=== PATIENT | female | born 1980 | race Caucasian/White ===

== ENCOUNTER 2021-06-17 00:02 | Day surgery (SDC) | payer OTHER, SELFPAY ==
[2021-06-10 13:34] VITALS: BMI 26.4
--- NOTE | 2021-06-10 13:45 | PC.NURSE ---
Report to the Outpatient Waiting Room, entrance under the green pavilion located off [facility], at time 0600 on date 06/17/21. OR Time: 0730. - You will be asked a series of questions to screen for COVID 19 for your protection. - A mask is required within the hospital. - No visitors are allowed at this time. Preoperative COVID Testing Requirements: No COVID Test needed if: (proof is required; if not received patient will have Rapid Test prior to entry) - Patient has received COVID Vaccine at least 14 days prior to procedure date or - Patient has positive COVID test result within last 90 days of surgery date. COVID Test needed if above criteria is not met Patients may have clear liquids (water, carbonated beverages, clear teas, apple juice) until 3 hours prior to surgery with a maximum of 20 ounces. - No food from midnight until time of surgery Take the following medications with a SIP of water the morning of surgery: ANXIETY MED IF NEEDED Medications to discontinue per physician: N/A Date to take last dose: N/A Please no make-up, nail azeri, hairspray, perfume, deodorant, or body powder the day of surgery. No jewelry (including any body piercings) or valuables the day of surgery, leave them at home. Please take a shower or bath the night before, or the morning of, surgery with an antibacterial soap. Wear comfortable, loose fitting clothing. - Jewelry must be removed prior to entering the operating room. Rings and piercings that are not removed may be cut off. - The hospital will not accept responsibility for valuables. - Please leave all valuables, including medications, at home the day of surgery. If you are going home after surgery, a licensed electric pile driver operator must drive you home. - NO public transportation without another adult. - We recommend that an adult stay with you for 24 hours following discharge. - We also recommend that you do not drive, make important decision, drink alcoholic beverages, or take any drugs that were not prescribed by your health care provider for at least 24 hours after your discharge time. Follow any additional instructions given to you from your surgeon. Telephone instructions given to MONROE UMANA and asked if any additional questions and then verbalized understanding. Patient advised to call surgeon office or pre surgery nurse liaison [phone] if any additional questions.
[2021-06-17] VITALS (11 sets, daily range): BP systolic 94–121; BP diastolic 55–72; PULSE 60–78; RESP 10–18; TEMP 36.3–37.2; O2SAT 96–100
--- NOTE | 2021-06-17 05:51 | ECG_ITS ---
Measurements Intervals [place] Rate: 48 P: 63 [place]: 140 QRS: 30 QRSD: 97 T: 51 QT: 415 QTc: 373 Interpretive Statements SINUS BRADYCARDIA INCOMPLETE RIGHT BUNDLE BRANCH BLOCK BASELINE ARTIFACT- I, II, III, AVR, AVL, AVF, V1-V2 ABNORMAL ECG Electronically Signed On 06-17-2021 7:41:20 CREDIT RISK REVIEW OFFICER by David Lezama D.O.
[2021-06-17] MEDS: LACTATED RINGERS 1,000 ML 30 ML IV CONT ×2 (06:45→13:04)
[2021-06-17 06:48] LABS: Urine Cotinine NEGATIVE
--- NOTE | 2021-06-17 06:48 | P.PNAN_ITS ---
Anes - Initial Pre Proc Eval Procedure: Operation Date: 06/17/21 07:30 Proposed Procedures p Bilateral Breast Augmentation with Mastopexy and Galaflex - Timothy Mccormick MD s Abdominoplasty - Timothy Mccormick MD Date/Time: 06/17/21 06:48 Surgeon: Timothy Mccormick MD Pre Op Diagnosis: skin laxity, breast ptosis, micromastia Patient Data Age: 40 Gender: F Height: 1.6 m Weight: 67.59 kg Allergies Allergy/AdvReac Type Severity Reaction Status Date / Time Sulfa (Sulfonamide AdvReac Unknown hives Verified 06/17/21 06:49 Antibiotics) Home Medications Medication Instructions Recorded Confirmed Type docusate sodium 100 mg capsule 100 mg PO DAILY #14 cap 06/03/21 06/10/21 Rx ondansetron 4 mg disintegrating 4 mg PO Q8H #21 tablet 06/03/21 06/10/21 Rx tablet carisoprodol 350 mg tablet 350 mg PO TID PRN #21 tablet 06/04/21 06/10/21 Rx diazepam 5 mg tablet 5 mg PO TID PRN #7 tablet 06/04/21 06/10/21 Rx oxycodone-acetaminophen 5 mg-325 1 tablet PO Q6H PRN #30 tablet 06/04/21 06/10/21 Rx mg tablet Laboratory Tests 06/17/21 06:19 Cotinine Pending Patient hx anesthesia problems: none Family hx anesthesia problems: none Results Review: All pre-operative results and documents have been reviewed as part of the pre-operative evaluation. [facility] Past Medical History Medical History (Updated 06/17/21 @ 06:48 by Jv Ho MD) Bradycardia Surgical History Surgical History (Updated 06/17/21 @ 06:48 by Jv Ho MD) History of section S/P gastric sleeve procedure Family History Family History Father Hypertension Mother Hypertension Social History Social History Smoking status: Never smoker Alcohol intake: current Drinks per week: 3 Substance use: never Substance use type: does not use Living arrangements: with family Spiritual care concerns: No Anes - Eval Final PreProcedure Day of Procedure 02/08/22 06:48 Patient weight: overweight Heart: regular rate and rhythm Lungs: clear to auscultation Airway: Mallampati scale class 1 Neurological: alert and oriented Last oral intake: >/= 8 hours ASA classification: II Emergent: no Anesthetic plan: proceed Anesthesia type and monitoring: general ETT and standard monitoring Results Review: All pre-operative results and documents have been reviewed as part of the pre-operative evaluation. Informed Consent: The patient's anesthetic plan and its attendant risks and benefits were discussed with the patient/family/POA. Questions were solicited and answers provided to the satisfaction of the patient/family/POA.
--- NOTE | 2021-06-17 06:54 | WPDHPUPDATE1 ---
History and Physical Update Update Date/Time: 06/17/21 06:54 History and Physical has been reviewed, including an updated exam of the patient. There are NO changes in the patient's condition. Risks, benefits, and alternatives have been discussed and questions answered. Patient agrees to proceed with procedure.
--- NOTE | 2021-06-17 07:18 | W.PM.PROC2 ---
Procedure Note - Detailed Date of Procedure 06/17/21 Pre-op Diagnosis skin laxity, breast ptosis, micromastia Post-op Diagnosis same Procedure Performed 1. Bilateral augmentation mastopexy with galaflex 2. Progressive tension abdominoplasty Surgeon Timothy Mccormick MD Anesthesia general Findings Bilateral Dual plane 1 augmentation mastopexy Bilateral Natrelle saline breast implants 390cc filled to 410cc Right - REF# 68-390 SN [id number] Left - REF# 68-390 SN [id number] Galaflex REF# [id number] Tissue removed: 1394 grams Description of Procedure Previously and again today the risks, benefits, alternatives were discussed in extensive detail. I wanted her to be very realistic about the risks involved as well as expectations. We discussed aftercare and what to monitor for. Made sure answered all of her questions to her satisfaction today and consent was obtained. Marked in the preoperative holding area with their verification. The patient was taken to the operating room placed supine on the operating table. Anesthesia was provided by anesthesiology. A surgical time-out was taken. We cleansed the skin and 1% lidocaine and 0.25% Marcaine with epinephrine was used anesthetize as a field block. She was prepped and draped in a standard sterile fashion. Breast Tegaderm nipple Brown were placed. A 15 blade used to make an incision just superior to the inframammary fold leaving a cusp of de-epithelized tissue at the t junction. Dissection was continued until the chest wall as identified. I incised the pectoralis major along its inferior border and completely released the inferior border leaving the medial border intact. I created a subpectoral pocket in the appropriate dimensions based on our preoperative planning for the implant. I then copiously irrigated with saline solution and verified a strict hemostasis. Next the use a triple antibiotic and Betadine containing solution to irrigate the pocket. I washed my gloves with the triple antibiotic and Betadine solution. I prepped the implants on the back table and introduced into the pocket. Filled using a fill kit to the volume above. Verified valve was seated. Having verified positioning of the implant this was closed using 2-0 Vicryl. I tailor tacked the breast into position. Placed her in a sitting position. Verified the nipple-areolar location based on preoperative planning as well as intraoperative observations and measurements in full agreement. She was placed supine. I de-epithelialized the pedicle. I then removed the inferior central portion of the breast need making sure the implant was well protected. I elevated medial and lateral tissue flaps as well for planned closure. Galaflex was trimmed and sutured into place using 2-0 Vicryl. I closed along the IMF with 2-0 Stratafix. Along the vertical with 2-0 PDS. I closed around the Hussein with 3-0 strata fix. 3-0 Monocryl along the vertical. 3-0 Stratafix along the IMF. I finally closed everything with running subcuticular 4-0 Monocryl and tissue glue. Abdomen Stab incisions were made and tumessed with a tumescent solution. A 10 blade was used to make the upper incision. I continued dissection down to the level of fascia. Elevated just what was necessary for repair of the diastasis. I then again flexed the bed to verify the upper skin flap would reach the lower markings without tension. Once verified I placed her supine once again and a 10 blade used to make the lower incision. I elevated up to level the umbilicus and left the umbilicus intact on a well-vascularized stalk. The intervening tissue was removed. A 2 mm blunt cannula with 0.5% bupivicaine was injected deep to the fascia bilaterally. I plicated the diastasis recti using 0 PDO stratafix barbed suture. This was in 2 separate layers using 2 separate sutures as well. I repaired around the umbilicus leaving plenty of room for well-vascularized stalk o
[2021-06-17] MEDS: ceFAZolin 2 GM/D5W 50 ML 2 GM/50 ML BAG IVPB (07:30)
[2021-06-17] MEDS: TRANEXAMIC ACID 1,000MG/ISO100 1,000 MG/100 ML BAG 200 MG IVPB (07:42)
[2021-06-17] MEDS: BUPIVACAINE HCL 0.25% PF 30 ML VIAL INFILTRATE (07:51)
[2021-06-17] MEDS: LIDO 1%/EPINEPHRINE/PF 1:200,000 30 ML VIAL INFILTRATE (07:51)
[2021-06-17] MEDS: LACTATED RINGERS IRRIG 1,000 ML, LIDOCAINE HCL 1% LOCAL INJ 50 ML, EPINEPHrine HCL INJ ... INFILTRATE (10:30)
[2021-06-17] MEDS: BUPIVACAINE/EPINEPHRINE 0.5% 30 ML VIAL INFILTRATE ×2 (11:29)
[2021-06-17] MEDS: ceFAZolin SODIUM 1 GM VIAL IV PUSH (11:30)
[2021-06-17] MEDS: fentaNYL CITRATE INJ (*CRX) 100 MCG/2 ML VIAL 25 MCG IV PUSH ×7 (13:25→14:31)
[2021-06-17] MEDS: LACTATED RINGERS 1,000 ML 125 ML IV CONT ×2 (15:32→22:42)
[2021-06-17] MEDS: MORPHINE SULFATE (*CRX) 2 MG/ML INJ IV PUSH ×2 (15:33→22:41)
[2021-06-17] MEDS: oxyCODONE/ACETAMINOPHEN (*CRX) 5-325 MG TABLET PO (18:57)
[2021-06-17] MEDS: DOCUSATE SODIUM 100 MG CAPSULE PO (18:57)
[2021-06-17] MEDS: carisoprodoL (*CRX) 350 MG TABLET PO (18:58)
[2021-06-17] MEDS: ENOXAPARIN 40 MG/0.4 ML SYRINGE SUB-Q (18:59)
[2021-06-18] MEDS: carisoprodoL (*CRX) 350 MG TABLET PO ×3 (01:18→13:05)
[2021-06-18 01:20] VITALS: BP 79/46; PULSE 65; RESP 18; TEMP 37.1
[2021-06-18] MEDS: oxyCODONE/ACETAMINOPHEN (*CRX) 5-325 MG TABLET PO ×3 (01:22→13:05)
[2021-06-18 05:15] VITALS: BP 79/43; PULSE 75; RESP 16; TEMP 37.2
[2021-06-18] MEDS: MORPHINE SULFATE (*CRX) 2 MG/ML INJ IV PUSH ×2 (05:50→10:56)
--- NOTE | 2021-06-18 06:33 | WPDPN ---
Progress Note: A&P Assessment and Plan (1) Micromastia: Code(s): N64.82 - Hypoplasia of breast Status: Acute Assessment and Plan: Overall doing well after bilateral augmentation mastopexy with progressive tension abdominoplasty. Will discharge home later today when: Tolerating p.o. Ambulating Pain controlled. I will see her back. Today we had a lengthy discussion about the care. Activity limitations. What monitor for. This was a lengthy open-ended conversation making sure answered questions are satisfaction. I will see her back. Call with any questions or concerns at any time. we also discussed what is a medical emergency and went to proceed to the ER/dial 911 (2) Skin laxity: Code(s): L57.4 - Cutis laxa senilis Status: Acute Time Spent With Patient Time with patient: 25 - 35 minutes Subjective Date/time seen: 06/18/21 06:15 Overnight she had a little difficulty with getting up. She would get a little bit lightheaded. Otherwise she is feeling well. No fevers or chills. No nausea vomiting. No shortness of breath. No chest pain. She does have decent pain control. Review of Systems Review of Systems: All systems reviewed & are unremarkable except as noted in HPI and below Exam Narrative: Alert and oriented no obvious distress. Respiratory unlabored. Bilateral breasts are soft. No signs of infection. No hematoma. No seroma. Good color and capillary refill. Abdomen soft. No signs of infection. No hematoma. No seroma. Good color and capillary refill No calf tenderness. Negative Homans Objective Data Vital Signs Vital Signs: Vital Signs - 24 hr 06/17/21 13:10 06/17/21 13:25 06/17/21 13:40 Temperature 36.3 C L Pulse Rate 75 78 67 Respiratory Rate 12 16 13 Blood Pressure 109/66 108/70 Pulse Oximetry 100 100 100 06/17/21 13:55 06/17/21 14:10 06/17/21 14:25 Temperature Pulse Rate 69 66 64 Respiratory Rate 16 15 10 L Blood Pressure 117/64 111/72 110/65 Pulse Oximetry 100 98 96 06/17/21 14:40 06/17/21 14:55 06/17/21 15:15 Temperature 36.7 C Pulse Rate 60 73 64 Respiratory Rate 16 18 16 Blood Pressure 103/67 108/67 121/71 Pulse Oximetry 97 100 100 06/17/21 19:11 06/18/21 01:20 06/18/21 05:15 Temperature 36.8 C 37.1 C 37.2 C Pulse Rate 75 65 75 Respiratory Rate 16 18 16 Blood Pressure 109/55 L 79/46 L 79/43 L Pulse Oximetry Intake/Output Intake/Output: Intake & Output 06/15/21 06/16/21 06/17/21 06/18/21 23:59 23:59 23:59 23:59 Intake Total 3050 Output Total 210 1050 Balance 2840 -1050 Meds/Results Medications: Active Medications Generic Name Dose Route Start Last Admin Trade Name Freq PRN Reason Stop Dose Admin Carisoprodol 350 mg 06/17/21 18:00 06/18/21 01:18 Carisoprodol (*Crx) 350 Mg Tablet PO 350 mg Q6HR MING Administration Diazepam 5 mg 06/17/21 13:01 Diazepam (*Crx) 5 Mg Tablet PO TID PRN Anxiety Docusate Sodium 100 mg 06/17/21 21:00 06/17/21 18:57 Docusate Sodium 100 Mg Capsule PO 100 mg Q12HR MING Administration Enoxaparin Sodium 40 mg 06/17/21 19:00 06/17/21 18:59 Enoxaparin 40 Mg/0.4 Ml Syringe SUB-Q 40 mg DAILY MING Administration Lactated Ringer's 1,000 mls @ 125 mls/hr 06/17/21 13:05 06/17/21 22:42 Lr - Lactated Ringers Iv IV CONT 125 mls/hr .Q8H MING Administration Morphine Sulfate 2 mg 06/17/21 13:01 06/18/21 05:50 Morphine Sulfate (*Crx) 2 Mg/Ml Inj IV PUSH 2 mg Q2H PRN Administration Pain Ondansetron HCl 4 mg 06/17/21 13:01 Ondansetron Inj 4 Mg/2 Ml Vial IV PUSH Q6H PRN Nausea Oxycodone/Acetaminophen 1 - 2 tablet 06/17/21 13:01 06/18/21 01:22 Oxycodone/Acetaminophen (*Crx) 5-325 Mg Tablet PO 2 tablet Q6H PRN Administration Pain Labs Labs: Laboratory Results - last 24 hr 06/17/21 06:19 Cotinine Negative
--- NOTE | 2021-06-18 06:36 | PM.DS ---
DS: Admitting Diagnosis Discharge Date 06/18/2021 Admitting Diagnosis Micromastia Breats Ptosis Skin laxity DS: Discharge Diagnosis Discharge Diagnosis (1) Micromastia: Code(s): N64.82 - Hypoplasia of breast Status: Acute (2) Skin laxity: Code(s): L57.4 - Cutis laxa senilis Status: Acute (3) Breast ptosis: Code(s): N64.81 - Ptosis of breast Status: Acute DS: Summary Hospital Course Hospital Course: She underwent bilateral augmentation mastopexy with progressive tension abdominoplasty. Postoperatively has had a little lightheadedness with running out of bed however is improving. Will monitor today and plan for discharge when ambulating, pain controlled, tolerating diet. I will see her back. Time Spent with Patient Time attestation: Total time spent providing and/or coordinating discharge services: 25 minutes Exam Narrative: Alert and oriented no obvious distress. Respiratory unlabored. Bilateral breasts are soft. No signs of infection. No hematoma. No seroma. Good color and capillary refill. Abdomen soft. No signs of infection. No hematoma. No seroma. Good color and capillary refill No calf tenderness. Negative Homans DS: Data Data Completed and Pending Labs on day of discharge: Labs from last 24 hours 06/17/21 06:19 Cotinine Negative Discharge Plan Discharge Patient Disposition: Home, Self-Care Discharge Instructions: POST OPERATIVE DISCHARGE INSTRUCTIONS TIMOTHY MCCORMICK M.D. [facility] [address] [place] [address] [address] for 24 hours after anesthesia and while you are taking pain medication. Take all prescribed medication as directed Diet as tolerated. Begin gentle shoulder rolls and arm stretches 10 times per hour. No lifting or activity that raises blood pressure for 48 hours. Regular walking / ambulation. May shower. No pools or tubs for 2 weeks. Call with any questions or concerns. Slowly stand up straight as tolerated over a week. No straining or lifting more than 20 pounds for 6 weeks. If you have any questions or concerns, please call the office . If it is after hours you will be directed to the rehabilitation attendant exchange. Shortness of breath, chest pain, or other medical emergency dial 911 / proceed to the Emergency Room. Stand Alone Forms: General Discharge Instructions Follow-up/Referrals: Timothy Mccormick MD [Physician] - 1 Week Discharge Medications: Continued docusate sodium [Colace] 100 mg capsule 100 mg PO DAILY Qty: 14 RF: 0 ondansetron 4 mg tablet,disintegrating 4 mg PO Q8H Qty: 21 RF: 0 carisoprodol [Soma] 350 mg tablet 350 mg PO TID PRN (Reason: muscle pain) Qty: 21 RF: 0 diazepam [Valium] 5 mg tablet 5 mg PO TID PRN (Reason: anxiety) Qty: 7 RF: 0 oxycodone-acetaminophen [Percocet] 5-325 mg tablet 1 tablet PO Q6H PRN (Reason: pain) Qty: 30 RF: 0
[2021-06-18 07:05] VITALS: BP 83/49; PULSE 81; RESP 16; TEMP 37.4; O2SAT 99
--- NOTE | 2021-06-18 07:35 | WPDANESPN ---
Anes - Prog Note Post-Op Date/Time: 06/18/21 07:35 Cardiovascular status: normal Respiratory status: normal Airway patency: baseline Mental status: baseline Post-Op hydration status: normal Vital Signs: Last Vital Signs Temp 37.2 C 06/18/21 05:15 Pulse 75 06/18/21 05:15 Resp 16 06/18/21 05:15 BP 79/43 L 06/18/21 05:15 Pulse Ox 100 06/17/21 15:15 Pain Score (VAS): 3/10 I/O: Intake & Output 06/17/21 06/17/21 06/18/21 15:59 23:59 07:59 Intake Total 1900 1150 950 Output Total 10 200 1050 Balance 1890 950 -100 Post-procedural complaints: none Patient Feedback: Patient satisfied with anesthetic care.
[2021-06-18 10:34] VITALS: BP 77/41; PULSE 80
[2021-06-18] MEDS: LACTATED RINGERS 1,000 ML 125 ML IV CONT (10:35)
[2021-06-18] MEDS: DOCUSATE SODIUM 100 MG CAPSULE PO (10:56)
[2021-06-18] MEDS: ENOXAPARIN 40 MG/0.4 ML SYRINGE SUB-Q (10:57)
[2021-06-18] MEDS: ONDANSETRON INJ 4 MG/2 ML VIAL IV PUSH (11:00)
[2021-06-18 11:20] VITALS: BP 94/56; PULSE 83; RESP 16; TEMP 37.3; O2SAT 98
== END 2021-06-18 14:03 | disposition home or self-care (01) ==
LOC: ANHSURGERY 06:06 → ANHOB2 15:04
PROVIDERS: Visit Provider Surgery Plastic and Reconstructive Surgery
PROC: (CPT 19325; principal; 2021-06-17 07:30)
PROC: (CPT 19325; 2021-06-17 07:30)
DX: Z41.1 Encounter for cosmetic surgery (principal); N64.82 Hypoplasia of breast; L57.4 Cutis laxa senilis; N64.81 Ptosis of breast; Z79.899 Other long term (current) drug therapy; Z98.84 Bariatric surgery status
CPT/HCPCS: 19325; 19316; 80307; 93005; 99199; A9270; J0171; J0330; J0690; J1100; J1580; J1650; J2250; J2270; J2405; J3010; J7120

== ENCOUNTER 2023-02-03 15:46 | Outpatient (CLI) | payer OTHER, SELFPAY ==
--- NOTE | 2023-02-03 15:55 | ECG_ITS ---
Measurements Intervals [place] Rate: 52 P: 43 [place]: 131 QRS: 22 QRSD: 94 T: 37 QT: 418 QTc: 392 Interpretive Statements SINUS BRADYCARDIA INCOMPLETE RIGHT BUNDLE BRANCH BLOCK BORDERLINE ECG COMPARED TO ECG 06/17/2021 07:24:37 NO SIGNIFICANT CHANGES Electronically Signed On 02-03-2023 16:05:32 CDT by David Lezama D.O.
== END 2023-02-03 15:47 | disposition home or self-care (01) ==
PROVIDERS: Visit Provider Surgery Plastic and Reconstructive Surgery
DX: Z01.812 Encounter for preprocedural laboratory examination (principal); Z01.810 Encounter for preprocedural cardiovascular examination; L57.4 Cutis laxa senilis; R00.1 Bradycardia, unspecified; I45.10 Unspecified right bundle-branch block
CPT/HCPCS: 36415; 86850; 86900; 86901; 93005

== ENCOUNTER 2023-02-09 00:15 | Day surgery (SDC) | payer OTHER, SELFPAY ==
[2023-02-01 10:31] VITALS: BMI 24.7
--- NOTE | 2023-02-01 10:34 | PC.NURSE ---
Report to the Outpatient Waiting Room, entrance under the green pavilion located off [facility], at time 7:00 on date 02/09/23. Planned Procedure Time: 9:00. Time changes happen often and if your time is changed the preop area will call you the afternoon before. - You and your visitor will be asked to self-screen and do not enter if you have any COVID symptoms. - A mask is optional within the hospital at this time. Patients may have clear liquids (water, carbonated beverages, clear teas, apple juice) until 3 hours prior to surgery (6:00) with a maximum of 20 ounces. - No food from midnight until time of surgery Take the following medications with a SIP of water the morning of surgery: NONE DO NOT STOP ANY OF YOUR OTHER PRESCRIPTION MEDICATIONS PRIOR TO SURGERY ?EXCEPT THE FOLLOWING Medications to discontinue per physician: VITAMINS/SUPPLEMENTS Date to take last dose: 02/05/23 Please no make-up, nail guamanian, hairspray, perfume, deodorant, or body powder the day of surgery. No jewelry (including any body piercings) or valuables the day of surgery, leave them at home. Please take a shower or bath the night before, or the morning of, surgery with an antibacterial soap. Wear comfortable, loose fitting clothing. - Jewelry must be removed prior to entering the operating room. Rings and piercings that are not removed may be cut off. - The hospital will not accept responsibility for valuables. - Please leave all valuables, including medications, at home the day of surgery. If you are going home after surgery, a licensed patient transportation driver must drive you home. - NO public transportation without another adult if you receive anesthesia. - We recommend that an adult stay with you for 24 hours following discharge. - We also recommend that you do not drive, make important decision, drink alcoholic beverages, or take any drugs that were not prescribed by your health care provider for at least 24 hours after your discharge time. Follow any additional instructions given to you from your surgeon. If you or anyone in your household have experienced Covid symptoms in the past week, please notify your surgeon or the nurse liaison at the phone number below for possible testing. Telephone instructions given to PT - MONROE UMANA and asked if any additional questions and then verbalized understanding. Patient advised to call surgeon office or pre surgery nurse liaison [phone] if any additional questions.
[2023-02-09] VITALS (8 sets, daily range): BP systolic 100–121; BP diastolic 58–77; PULSE 53–86; RESP 12–22; TEMP 36.4–37.1; O2SAT 99–100
[2023-02-09 07:59] LABS: Hematocrit 33.3 % (37.0-47.0); Hemoglobin 9.4 g/dL (12.0-15.0)
--- NOTE | 2023-02-09 08:00 | SUR.PREOP ---
0745 PT INFORMED OF SURGERY TIME DELAY D/T SURGEON HAVING A MEETING
[2023-02-09 08:02] LABS: Urine Cotinine NEGATIVE
[2023-02-09] MEDS: LACTATED RINGERS 1,000 ML 30 ML IV CONT ×3 (08:03→15:23)
--- NOTE | 2023-02-09 10:38 | WPDHPUPDATE1 ---
History and Physical Update Update Date/Time: 02/09/23 10:38 History and Physical has been reviewed, including an updated exam of the patient. There are NO changes in the patient's condition. Risks, benefits, and alternatives have been discussed and questions answered. Patient agrees to proceed with procedure.
--- NOTE | 2023-02-09 10:44 | W.PM.PROC2 ---
Procedure Note - Detailed Date of Procedure 02/09/23 Pre-op Diagnosis hx of breast aug, skin laxity Post-op Diagnosis Same Procedure Performed 1. Bilateral breast implant exchange. 2. Bilateral IMF revision. 3. Bilateral medial thigh lift. Surgeon Timothy Mccormick MD Anesthesia General Findings Bilateral saline implants removed No worriseome features New implants: Bilateral Noris Inspira SofTouch 485cc Right - REF# [id number] SN [id number] Left - REF# [id number] SN [id number] Thighs Lipoaspirate: 1,000 cc Description of Procedure Preoperatively the risks, benefits, alternatives were discussed in extensive detail. I wanted to be very realistic about the risks involved as well as expectations. I was clear about how we could actually make her worse. Answered all questions to satisfaction. Voiced a clear understanding. Consent obtained. She was taken the operating room placed supine on the operating room table. Anesthesia provided by anesthesiology and prepped and draped in a standard sterile fashion. Breast Surgical time-out was taken. 1% lidocaine and 0.25% Marcaine with epinephrine was used to provide a field block. Tegaderm nipple retana were placed. Fifteen blade used to excise the previous IMF scars. Dissection was continued down until the capsules were identified and and incissed. Implants were removed bilateral. I then copiously irrigated with 3 L of saline solution on TUR tubing. Verified strict hemostasis. Bilateral medial and superior capsulotomy completed and lateral popcorn capsulorraphy. I then irrigated with Betadine containing solution. Using a no-touch technique and a Perez funnel the implant was introduced into the pocket. This was closed with 2-0 PDS. I tacked the breast into position and placed sitting to verify my syed. Placed supine. IMF was excised with 10 blade and closed with 2-0 Quill followed by 3-0 strattafix and a running subcuticular 4-0 Monocryl followed by tissue glue. Thighs Stab incisions were made and I tumesced with a tumescent solution. Once adequate time for hemostasis suction lipectomy was with a 4 mm basket cannula based on S.A.F.E. technique. This was completed based on preoperative planning, intraoperative observation, and rolling pinch test which was in full agreement. I completely de-fatted the planned resection area and a strip avulsion technique was completed. Starting proximal to distal a 10 blade was used to excise the intervening skin and this was tacked as we proceed to ensure good closure. This was closed using a 2-0 Quill, 3-0 strata fix, running subcuticular 4-0 Monocryl, and tissue glue. Dressings and surgical bra were placed. Tolerated the procedure well. Taken to the PACU without difficulty. All instrument sponge counts were correct at the end of the case. Estimated Blood Loss 75 Drains No Packing No Pathology None sent Complications No immediate complications Condition Stable Disposition PACU
--- NOTE | 2023-02-09 10:53 | WPDANESEPPF ---
Anes - Initial Pre Proc Eval Procedure: Operation Date: 02/09/23 09:00 Proposed Procedures p Medial Thigh Lift - Timothy Mccormick MD s Bilateral Breast Implant Exchange with Inframammary Fold Revision - Timothy Mccormick MD Date/Time: 02/09/23 10:53 Surgeon: Timothy Mccormick MD Pre Op Diagnosis: hx of breast aug, skin laxity Patient Data Age: 42 Gender: F Height: 1.6 m Weight: 62.9 kg Last Vital Signs Temp 98.0 F 02/09/23 07:25 Pulse 62 02/09/23 07:25 Resp 18 02/09/23 07:25 BP 107/68 02/09/23 07:25 Pulse Ox 100 02/09/23 07:25 O2 Del Method Room Air 02/09/23 07:25 Allergies Allergy/AdvReac Type Severity Reaction Status Date / Time Sulfa (Sulfonamide AdvReac Unknown hives Verified 02/09/23 08:00 Antibiotics) Home Medications Medication Instructions Recorded Confirmed Type ferrous sulfate 325 mg (65 mg 325 mg PO DAILY 02/01/23 02/09/23 History iron) tablet (Iron (ferrous sulfate)) Laboratory Tests 02/09/23 02/09/23 07:32 07:50 Hgb 9.4 L g/dL (12.0-15.0) Hct 33.3 L % (37.0-47.0) Cotinine Negative Patient hx anesthesia problems: none Family hx anesthesia problems: none Results Review: All pre-operative results and documents have been reviewed as part of the pre-operative evaluation. [facility] Past Medical History Medical History Bradycardia Surgical History Surgical History History of section S/P gastric sleeve procedure Family History Family History Father Hypertension Mother Hypertension Social History Social History Smoking status: Never smoker Alcohol intake: current Drinks per week: 3 Alcohol use details: 2/MONTH Substance use: never Substance use type: does not use Living arrangements: with family Spiritual care concerns: No Anes - Eval Final PreProcedure Day of Procedure 02/09/23 10:53 Patient weight: normal Heart: regular rate and rhythm Lungs: clear to auscultation Airway: Mallampati scale class II Neurological: alert and oriented Last oral intake: >/= 8 hours ASA classification: II Emergent: no Anesthetic plan: proceed Anesthesia type and monitoring: general LMA and standard monitoring Results Review: All pre-operative results and documents have been reviewed as part of the pre-operative evaluation. Informed Consent: The patient's anesthetic plan and its attendant risks and benefits were discussed with the patient/family/POA. Questions were solicited and answers provided to the satisfaction of the patient/family/POA.
[2023-02-09] MEDS: TRANEXAMIC ACID 1,000MG/ISO100 1,000 MG/100 ML BAG 200 MG IVPB (10:57)
[2023-02-09] MEDS: ceFAZolin 2 GM/D5W 50 ML 2 GM/50 ML BAG IVPB (10:57)
[2023-02-09] MEDS: LIDO 1%/EPINEPHRINE 1:100,000 20 ML VIAL 30 ML INFILTRATE (11:00)
[2023-02-09] MEDS: BUPivacaine HCL 0.25% PF 10 ML VIAL INFILTRATE (11:00)
[2023-02-09] MEDS: LACTATED RINGERS IRRIG 1,000 ML, LIDOCAINE HCL 1% LOCAL INJ 50 ML, EPINEPHrine HCL INJ ... INFILTRATE (11:00)
[2023-02-09] MEDS: NACL 0.9% IRRIG POUR BOTTLE 900 ML, GENTAMICIN SULFATE INJ 160 MG, ceFAZolin 2 GM, POVI... IRRIGATION (11:56)
[2023-02-09] MEDS: ceFAZolin SODIUM 1 GM VIAL IV PUSH (14:24)
[2023-02-09] MEDS: fentaNYL CITRATE INJ (*CRX) 100 MCG/2 ML VIAL 25 MCG IV PUSH ×4 (15:48→16:19)
[2023-02-09] MEDS: LACTATED RINGERS 1,000 ML 125 ML IV CONT (17:01)
[2023-02-09] MEDS: MORPHINE SULFATE (*CRX) 2 MG/ML INJ IV PUSH (17:02)
--- NOTE | 2023-02-09 17:27 | OBPPTRN ---
Patient transferred to post room #283 via bed. Support person present. Oriented to unit, room, information board, and seafood process worker procedures. Patient verbalizes understanding.
[2023-02-09] MEDS: KETOROLAC 10 MG TABLET PO (19:20)
[2023-02-09] MEDS: oxyCODONE/ACETAMINOPHEN (*CRX) 5-325 MG TABLET PO ×2 (19:20→22:20)
[2023-02-09] MEDS: DOCUSATE SODIUM 100 MG CAPSULE PO (19:20)
[2023-02-09] MEDS: SIMETHICONE 80 MG TAB.CHEW PO (20:34)
[2023-02-09] MEDS: ONDANSETRON INJ 4 MG/2 ML VIAL IV PUSH (20:34)
[2023-02-10] MEDS: oxyCODONE/ACETAMINOPHEN (*CRX) 5-325 MG TABLET PO ×4 (01:23→10:38)
[2023-02-10] MEDS: SIMETHICONE 80 MG TAB.CHEW PO ×2 (01:23→04:50)
[2023-02-10] MEDS: KETOROLAC 10 MG TABLET PO ×2 (01:23→07:09)
[2023-02-10 04:50] VITALS: BP 92/57; PULSE 66; RESP 16; TEMP 36.7
--- NOTE | 2023-02-10 06:48 | WPDPN ---
Progress Note: A&P Assessment and Plan (1) Skin laxity: Code(s): L57.4 - Cutis laxa senilis Status: Acute Assessment and Plan: Doing well after bilateral breast implant exchange, bilateral IMF revision, bilateral medial thigh lift. Will discharge home. Today we had a lengthy discussion about the care. Activity limitations. What to monitor for. What is an emergency and when to dial 911 / proceed to the ER. This was a lengthy open ended conversation making sure they were well informed. Answered all their questions. They voiced a clear understanding. Will discharge home. Call with any questions or concerns in the meantime. (2) History of breast augmentation: Code(s): Z98.82 - Breast implant status Status: Acute Subjective Date/time seen: 02/10/23 06:48 Interval history: Doing well after bilateral breast implant exchange, bilateral IMF revision, bilateral medial thigh lift. Ambulating. Pain controlled. No nausea / vomiting. No fevers / chills. No shortness of breast. No chest pain. No calf tenderness. Mild headache this AM. Review of Systems Review of Systems: All systems reviewed & are unremarkable except as noted in HPI and below Exam Narrative: Alert & Oriented NOD Respiratory unlabored Breasts are healing well. No signs of infection. No hematoma. No seroma. Good color and capillary refill. Bilateral thighs soft. No hematoma. No seroma. No calf tenderness. Negative Shante's Objective Data Vital Signs Vital Signs: Vital Signs - 24 hr 02/09/23 07:25 02/09/23 15:23 02/09/23 15:35 Temperature 36.7 C 37.1 C Pulse Rate 62 68 70 Respiratory Rate 18 12 22 H Blood Pressure 107/68 112/64 111/60 Pulse Oximetry 100 100 100 Oxygen Delivery Room Air Simple Face Mask Room Air Oxygen Flow Rate 8 02/09/23 15:50 02/09/23 16:05 02/09/23 16:20 Temperature Pulse Rate 59 L 53 L 60 Respiratory Rate 14 12 16 Blood Pressure 107/58 L 105/60 110/59 L Pulse Oximetry 100 100 99 Oxygen Delivery Room Air Room Air Room Air Oxygen Flow Rate 02/09/23 16:40 02/09/23 19:20 02/10/23 04:50 Temperature 36.9 C 36.4 C L 36.7 C Pulse Rate 86 67 66 Respiratory Rate 18 16 16 Blood Pressure 121/77 100/62 92/57 L Pulse Oximetry 99 Oxygen Delivery Oxygen Flow Rate Intake/Output Intake/Output: Intake & Output 02/07/23 02/08/23 02/09/23 02/10/23 23:59 23:59 23:59 23:59 Intake Total 1550 Output Total 360 400 Balance 1190 -400 Meds/Results Medications: Active Medications Generic Name Dose Route Start Last Admin Trade Name Willie PRN Reason Stop Dose Admin Docusate Sodium 100 mg 02/09/23 21:00 02/09/23 19:20 Docusate Sodium 100 Mg Capsule PO 100 mg Q12HR MING Administration Ferrous Sulfate 325 mg 02/10/23 09:00 Ferrous Sulfate [address] PO DAILY [facility] Ketorolac Tromethamine 10 mg 02/09/23 18:00 02/10/23 01:23 Ketorolac 10 Mg Tablet PO 02/11/23 12:01 10 mg Q6HR MING Administration Oxycodone/Acetaminophen 1 - 2 tablet 02/09/23 14:56 02/10/23 04:50 Oxycodone/Acetaminophen (*Crx) 5-325 Mg Tablet PO 1 tablet Q6H PRN Administration Pain Rated 3-10 Simethicone 80 mg 02/09/23 21:48 02/10/23 04:50 Simethicone 80 Mg Tab.Chew PO 80 mg Q2HR PRN Administration Gas Discomfort Labs Labs: Laboratory Results - last 24 hr 02/09/23 02/09/23 07:32 07:50 Hgb 9.4 L Hct 33.3 L Cotinine Negative
--- NOTE | 2023-02-10 06:50 | P.DS_ITS ---
DS: Admitting Diagnosis Discharge Date 02/10/2023 Admitting Diagnosis 1. Skin laxity 2. History of breast augmentation DS: Discharge Diagnosis Discharge Diagnosis (1) Skin laxity: Code(s): L57.4 - Cutis laxa senilis Status: Acute (2) History of breast augmentation: Code(s): Z98.82 - Breast implant status Status: Acute DS: Summary Hospital Course Hospital Course: Doing well after bilateral breast implant exchange, bilateral IMF revision, bilateral medial thigh lift. Will discharge home. Time Spent with Patient Time attestation: Total time spent providing and/or coordinating discharge services: Exam Narrative: Alert & Oriented NOD Respiratory unlabored Breasts are healing well. No signs of infection. No hematoma. No seroma. Good color and capillary refill. Bilateral thighs soft. No hematoma. No seroma. No calf tenderness. Negative Shante's DS: Data Data Completed and Pending Labs on day of discharge: Labs from last 24 hours 02/09/23 02/09/23 07:50 07:32 Hgb 9.4 L Hct 33.3 L Cotinine Negative Discharge Plan Discharge Patient Disposition: Home, Self-Care Discharge Instructions: POST OPERATIVE DISCHARGE INSTRUCTIONS TIMOTHY MCCORMICK M.D. [facility] [place] [address] * No driving for 24 hours after anesthesia and while you are taking pain medication. * Take all prescribed medication as directed * Diet as tolerated. * No lifting or activity that raises blood pressure for 48 hours. * Regular walking / ambulation. * May shower. Once you shower do not take pain medication before showering as the combination of medication and heat may cause you to feel dizzy or pass out. * No pools or tubs for 2 weeks. * Call with any questions or concerns. * Dressing Care: Surgical bra and thigh wraps 23 hours per day. If you have any questions or concerns, please call the office . If it is after hours you will be directed to the transportation technician exchange. Shortness of breath, chest pain, or other medical emergency dial 911 / proceed to the Emergency Room. Stand Alone Forms: General Discharge Instructions Follow-up/Referrals: Timothy Mccormick MD [Physician] - 1 Week Discharge Medications: Continued ferrous sulfate [Iron (ferrous sulfate)] 325 mg (65 mg iron) Tablet 325 mg PO DAILY Other Ambulatory Orders: Hemoglobin and Hematocrit (Routine) Timeframe: [id number] Location: Determined by Patient Ordered By: Marcelo Daley
[2023-02-10 07:22] VITALS: BP 96/54; PULSE 63; RESP 18; TEMP 36.5; O2SAT 100
--- NOTE | 2023-02-10 08:33 | WPDANESPN ---
Anes - Prog Note Post-Op Date/Time: 02/10/23 08:33 Cardiovascular status: normal Respiratory status: normal Airway patency: baseline Mental status: baseline Post-Op hydration status: normal Vital Signs: Last Vital Signs Temp 97.7 F 02/10/23 07:22 Pulse 63 02/10/23 07:22 Resp 18 02/10/23 07:22 BP 96/54 L 02/10/23 07:22 Pulse Ox 100 02/10/23 07:22 O2 Del Method Room Air 02/09/23 16:20 O2 Flow Rate 8 02/09/23 15:23 Pain Score (VAS): 5 I/O: Intake & Output 02/09/23 02/10/23 02/10/23 23:59 07:59 15:59 Intake Total 400 Output Total 360 400 Balance 40 -400 Laboratory Tests 02/09/23 07:50 Post-procedural complaints: nausea Patient Feedback: Patient satisfied with anesthetic care.pt reports persistent nausea since getting out of bed.
--- NOTE | 2023-02-10 10:12 | PC.NURSE ---
On 02/10/23, the student, Little Avitia, provided care and completed [facility] documentation on this patient. I have reviewed the student's documentation and agree with the findings.
[2023-02-10] MEDS: DOCUSATE SODIUM 100 MG CAPSULE PO (10:38)
== END 2023-02-10 10:55 | disposition home or self-care (01) ==
LOC: ANHSURGERY 10:52 → ANHOB2 16:43
PROVIDERS: Anesthesiology; Visit Provider Surgery Plastic and Reconstructive Surgery
PROC: (CPT 15832; principal; 2023-02-09 09:00)
PROC: (CPT 19370; 2023-02-09 09:00)
DX: Z41.1 Encounter for cosmetic surgery (principal); L57.4 Cutis laxa senilis; Z98.84 Bariatric surgery status
CPT/HCPCS: 19370; 19325; 15832; 15879; 80307; 85014; 85018; 99199; A9270; J0171; J0690; J1100; J1170; J1580; J2250; J2270; J2405; J2704; J3010; J7120